=== PATIENT | male | born 1960 | race Caucasian/White ===

== ENCOUNTER 2021-01-14 05:58 | Day surgery (SDC) | payer BC ==
[2021-01-14] MEDS ORDERED: Lactated Ringers 1,000 ML IV SCH (06:30)
[2021-01-14] MEDS ORDERED: DIPRIVAN 200 MG/20 ML IV ONE (07:35)
--- NOTE | 2021-01-14 08:36 | OP ---
SURGERY DATE/TIME: 01/14/2021 0738 PREOPERATIVE DIAGNOSIS: Screening colonoscopy. POSTOPERATIVE DIAGNOSIS: Normal colon. PROCEDURE: Colonoscopy. SURGEON: Johnnie Vidal M.D. ANESTHESIA: MAC by Asad Sheldon CRNA. ESTIMATED BLOOD LOSS: None. SPECIMENS: None. DESCRIPTION OF PROCEDURE: After informed written consent was obtained, the patient was taken to the endoscopy suite. He was monitored and placed in left lateral decubitus position. Anesthesia was titrated to desired level of consciousness. Digital rectal exam showed normal sphincter tone and no internal lesions. The scope was inserted into the rectum and sequentially the entire colonic mucosa was traversed. The level of cecum was reached and verified with direct visualization of the ileocecal valve. Upon withdrawal careful mucosal inspection revealed no gross abnormalities. Prior to withdrawal retroflexion was performed and showed no internal lesions. The scope was removed. The patient was transferred to the recovery room in good condition.
[2021-01-14 08:41] VITALS: BP 160/95; PULSE 64; O2SAT 100
== END 2021-01-14 08:48 | disposition home or self-care (01) ==
LOC: SDC 05:58
PROVIDERS: ATTEND Family Medicine
DX: Z12.11 Encounter for screening for malignant neoplasm of colon (principal)
CPT/HCPCS: J2704